=== PATIENT | male | born 1960 | race Caucasian/White ===

== ENCOUNTER → 2016-06-09 | Outpatient (REF) | payer OTHER ==
[2016-06-09 17:23] LABS: ALBUMIN 4.1 GM/DL (3.2-5.2); ALBUMIN/GLOBULIN RATIO 1.17 (1.00-1.93); ALKALINE PHOSPHATASE 120 U/L (45-117); ALT/SGPT 39 U/L (12-78); ANION GAP 6 MEQ/L (8-16); AST/SGOT 32 U/L (15-37); BILIRUBIN,TOTAL 0.6 MG/DL (0.2-1.0); BLOOD UREA NITROGEN 23 MG/DL (7-18); CALCIUM LEVEL 8.6 MG/DL (8.5-10.1); CARBON DIOXIDE LEVEL 29 MEQ/L (21-32); CHLORIDE LEVEL 106 MEQ/L (98-107); CHOLESTEROL LEVEL 133 MG/DL (<200); GLOMERULAR FILTRATION RATE > 60.0 (>56); GLUCOSE, FASTING 84 MG/DL (70-105); POTASSIUM SERUM 4.6 MEQ/L (3.5-5.1); SODIUM LEVEL 141 MEQ/L (136-145); TOTAL PROTEIN 7.6 GM/DL (6.4-8.2); TRIGLYCERIDES LEVEL 111 MG/DL (<150)
== END ==
LOC: M SFHCCLAY 11:26
PROVIDERS: ATTEND Family Medicine
DX: Z00.00 Encounter for general adult medical examination without abnormal findings (principal); Z12.5 Encounter for screening for malignant neoplasm of prostate
CPT/HCPCS: 80053; 80061; G0103

== ENCOUNTER → 2017-08-15 | Outpatient (REF) | payer BC ==
[2017-08-15 17:11] LABS: ALBUMIN 3.8 GM/DL (3.2-5.2); ALBUMIN/GLOBULIN RATIO 1.23 (1.00-1.93); ALKALINE PHOSPHATASE 103 U/L (45-117); ALT/SGPT 69 U/L (12-78); ANION GAP 11 MEQ/L (8-16); AST/SGOT 38 U/L (7-37); BILIRUBIN,TOTAL 0.4 MG/DL (0.2-1.0); BLOOD UREA NITROGEN 19 MG/DL (7-18); CALCIUM LEVEL 8.1 MG/DL (8.5-10.1); CARBON DIOXIDE LEVEL 25 MEQ/L (21-32); CHLORIDE LEVEL 107 MEQ/L (98-107); CHOLESTEROL LEVEL 105 MG/DL (<200); CREATININE FOR GFR 1.08 MG/DL (0.70-1.30); GLOMERULAR FILTRATION RATE > 60.0 (>56); GLUCOSE, FASTING 103 MG/DL (70-100); HDL CHOLESTEROL 29 MG/DL (>40); LDL CHOLESTEROL 47.4 MG/DL (<100); NON-HDL-C 76 MG/DL; POTASSIUM SERUM 4.3 MEQ/L (3.5-5.1); PSA SCREENING 0.21 NG/ML (< 4.0); SODIUM LEVEL 143 MEQ/L (136-145); TOTAL PROTEIN 6.9 GM/DL (6.4-8.2); TRIGLYCERIDES LEVEL 143 MG/DL (<150)
== END ==
LOC: M SFHCCLAY 10:18
DX: Z00.00 Encounter for general adult medical examination without abnormal findings (principal); Z12.5 Encounter for screening for malignant neoplasm of prostate
CPT/HCPCS: 80053

== ENCOUNTER → 2018-01-13 | Outpatient (CLI) | payer OTHER | LOC: M RAD 13:04 | DX: Z12.2 Encounter for screening for malignant neoplasm of respiratory organs (principal); F17.218 Nicotine dependence, cigarettes, with other nicotine-induced disorders; R91.8 Other nonspecific abnormal finding of lung field | CPT/HCPCS: G0297 ==

== ENCOUNTER → 2018-06-22 | Outpatient (REF) | payer OTHER ==
[~2018-06-22] MED LIST: VENL100T PO; VERAP80TA PO
[2018-06-23 11:48] LABS: BASO # 0.1 10^3/uL (0.0-0.2); BASO % 1.4 % (0.0-1.0); EOS # 0.2 10^3/uL (0.0-0.50); EOS % 2.4 % (0.0-3.0); HEMATOCRIT 50.4 % (42.0-52.0); HEMOGLOBIN 16.7 g/dl (13.5-17.5); LYMPH # 3.2 10^3/uL (1.5-4.5); LYMPH % 40.5 % (24.0-44.0); MEAN CORPUSCULAR HEMOGLOBIN 32.2 pg (27.0-33.0); MEAN CORPUSCULAR HGB CONC 33.1 g/dl (32.0-36.5); MEAN CORPUSCULAR VOLUME 97.3 fl (80.0-96.0); MONO # 0.6 10^3/uL (0.0-0.8); MONO % 7.9 % (0.0-5.0); NEUTROPHILS # 3.8 10^3/uL (1.8-7.7); NEUTROPHILS % 47.3 % (36.0-66.0); PLATELET COUNT, AUTOMATED 183 10^3/uL (150-450); RED BLOOD COUNT 5.18 10^6/uL (4.30-6.10); WHITE BLOOD COUNT 7.9 10^3/uL (4.0-10.0)
[2018-06-23 12:36] LABS: ALBUMIN 4.2 GM/DL (3.2-5.2); ALT/SGPT 41 U/L (12-78); BILIRUBIN,TOTAL 0.3 MG/DL (0.2-1.0); BLOOD UREA NITROGEN 21 MG/DL (7-18); CALCIUM LEVEL 8.5 MG/DL (8.5-10.1); CARBON DIOXIDE LEVEL 29 MEQ/L (21-32); CHLORIDE LEVEL 106 MEQ/L (98-107); CHOLESTEROL LEVEL 126 MG/DL (<200); CHOLESTEROL RISK RATIO 3.315 (<5); CREATININE FOR GFR 1.18 MG/DL (0.70-1.30); FREE T4 0.85 NG/DL (0.76-1.46); GLOMERULAR FILTRATION RATE > 60.0 (>56); GLUCOSE, FASTING 78 MG/DL (70-100); HDL CHOLESTEROL 38 MG/DL (>40); LDL CHOLESTEROL 68 MG/DL (<100); NON-HDL-C 88 MG/DL; SODIUM LEVEL 141 MEQ/L (136-145); TOTAL PROTEIN 7.6 GM/DL (6.4-8.2); TRIGLYCERIDES LEVEL 102 MG/DL (<150)
== END ==
LOC: M SFHCCLAY 16:20
PROVIDERS: ATTEND Nurse Practitioner Family
DX: Z00.00 Encounter for general adult medical examination without abnormal findings (principal); F34.1 Dysthymic disorder; Z72.0 Tobacco use; G44.009 Cluster headache syndrome, unspecified, not intractable; Z12.5 Encounter for screening for malignant neoplasm of prostate

== ENCOUNTER → 2019-01-23 | Outpatient (CLI) | payer OTHER ==
--- NOTE | 2019-01-23 17:12 | REP ---
Low-dose lung screening CT of the chest: The studies performed without IV contrast. The images are presented at lung windowing only. Comparisons are 03/03/2016 and 01/13/2018. There are multiple small lung nodules bilaterally. On the study today there are two new lung nodules, not present previously, one posteriorly in the left upper lobe on image 31 measuring 6 mm in diameter and the other on image 40 in the right upper lobe measuring 5 mm in diameter. In addition there are multiple other new small lung nodules in the 3 mm range bilaterally. All of the previously identified lung nodules are stable and unchanged. There are no infiltrates or pleural effusions. Impression: Multiple small lung nodules. No other lung nodules identified previously are stable and unchanged. However, there are multiple new lung nodules bilaterally in the three 4 mm range, not present previously. This is nonspecific. Granulomatous disease and metastatic disease are primary diagnostic considerations. Some infectious disease as could present in this manner as well. Electronically Signed by Taye Hedrick MD 01/23/2019 05:04 P
== END ==
LOC: M RAD 14:13
PROVIDERS: ATTEND Internal Medicine Pulmonary Disease
DX: Z12.2 Encounter for screening for malignant neoplasm of respiratory organs (principal); F17.210 Nicotine dependence, cigarettes, uncomplicated; R91.8 Other nonspecific abnormal finding of lung field

== ENCOUNTER → 2019-10-17 | Outpatient (CLI) | payer OTHER ==
[~2019-10-17] MED LIST changes: +ALL10TAB29 PO; +CYCL-707 PO; +IBUP-1022 PO
--- NOTE | 2019-10-17 17:48 | REP ---
CT CHEST WITHOUT CONTRAST: HISTORY: Abnormal lung field findings. Nicotine dependence. Comparison is made with prior chest CTs, the most recent of which is from January 23, 2019 and the most remote from September 20, 2014. FINDINGS: Most of the subcentimeter pulmonary nodules which were identified as new pulmonary nodules on the January 23, [address] study have resolved . In the posterior segment of the left upper lobe, there was a 6 mm nodule on the most recent prior study which was also new. This it is tiny now, approximately 2 mm. This has regressed significantly. There are multiple stable pulmonary nodules, which are unchanged from the September 20, 2014 prior study bilaterally. No new pulmonary nodule is appreciated today. Emphysematous changes are again noted. There is no evidence of hilar or mediastinal mass or adenopathy. There is moderate to marked fatty infiltration of the liver diffusely. Normal adrenal glands are seen. IMPRESSION: Interval resolution and regression many of the pulmonary nodules which are identified as new on the most recent prior study. There are several stable pulmonary nodules as well. Electronically Signed by Judson Hou MD 10/17/2019 06:03 P
== END ==
LOC: M RAD 16:23
PROVIDERS: ATTEND Internal Medicine Pulmonary Disease
DX: R91.8 Other nonspecific abnormal finding of lung field (principal); F17.218 Nicotine dependence, cigarettes, with other nicotine-induced disorders; J43.9 Emphysema, unspecified

== ENCOUNTER → 2019-10-25 | Outpatient (REF) | payer OTHER ==
[~2019-10-25] MED LIST changes: -ALL10TAB29 PO; +CETI-24 PO
[2019-10-25 12:13] LABS: BASO # 0.1 10^3/uL (0.0-0.2); BASO % 1.4 % (0.0-1.0); EOS # 0.2 10^3/uL (0.0-0.5); EOS % 2.9 % (0.0-3.0); HEMATOCRIT 50.2 % (42.0-52.0); HEMOGLOBIN 16.9 g/dl (13.5-17.5); LYMPH # 2.5 10^3/uL (1.5-5.0); LYMPH % 33.8 % (24.0-44.0); MEAN CORPUSCULAR HEMOGLOBIN 32.9 pg (27.0-33.0); MEAN CORPUSCULAR HGB CONC 33.7 g/dl (32.0-36.5); MEAN CORPUSCULAR VOLUME 97.7 fl (80.0-96.0); MONO # 0.6 10^3/uL (0.0-0.8); MONO % 8.6 % (0.0-5.0); NEUTROPHILS # 3.9 10^3/uL (1.5-8.5); NEUTROPHILS % 52.8 % (36.0-66.0); PLATELET COUNT, AUTOMATED 166 10^3/uL (150-450); RED BLOOD COUNT 5.14 10^6/uL (4.30-6.10); WHITE BLOOD COUNT 7.3 10^3/uL (4.0-10.0)
[2019-10-25 13:10] LABS: ALBUMIN 4.1 GM/DL (3.2-5.2); ALT/SGPT 55 U/L (12-78); BILIRUBIN,TOTAL 0.6 MG/DL (0.2-1.0); BLOOD UREA NITROGEN 23 MG/DL (7-18); CARBON DIOXIDE LEVEL 26 MEQ/L (21-32); CHLORIDE LEVEL 111 MEQ/L (98-107); CHOLESTEROL LEVEL 127 MG/DL (<200); CHOLESTEROL RISK RATIO 4.379 (<5); CREATININE FOR GFR 1.15 MG/DL (0.70-1.30); FREE T4 0.91 NG/DL (0.76-1.46); GLOMERULAR FILTRATION RATE > 60.0 (>56); GLUCOSE, FASTING 105 MG/DL (70-100); HDL CHOLESTEROL 29 MG/DL (>40); LDL CHOLESTEROL 83 MG/DL (<100); NON-HDL-C 98 MG/DL; POTASSIUM SERUM 4.3 MEQ/L (3.5-5.1); SODIUM LEVEL 142 MEQ/L (136-145); TOTAL PROTEIN 7.3 GM/DL (6.4-8.2); TRIGLYCERIDES LEVEL 74 MG/DL (<150)
[2019-10-25 17:07] LABS: HEMOGLOBIN A1c 5.9 %
== END ==
LOC: M SFHCCLAY 07:52
PROVIDERS: ATTEND Nurse Practitioner Family
DX: Z00.00 Encounter for general adult medical examination without abnormal findings (principal); F34.1 Dysthymic disorder; R03.0 Elevated blood-pressure reading, without diagnosis of hypertension; Z13.220 Encounter for screening for lipoid disorders; Z13.1 Encounter for screening for diabetes mellitus

== ENCOUNTER 2020-10-12 13:53 | Emergency (ER) | payer OTHER ==
[~2020-10-12] VITALS: Ht 177.8 cm; Wt 94.2 kg
[~2020-10-12 13:53] MED LIST changes: +VERA80TA3 PO; -VERAP80TA PO
[2020-10-12] MEDS ORDERED: LIDOCAINE 2% MDV 20ML VIAL SC ONE (16:05)
[2020-10-12 16:27] VITALS: BP 134/87
== END 2020-10-12 16:35 | disposition home or self-care (01) ==
LOC: M ED 13:53
DX: S61.412A Laceration without foreign body of left hand, initial encounter (principal); W26.0XXA Contact with knife, initial encounter; Y92.009 Unspecified place in unspecified non-institutional (private) residence as the place of occurrence of the external cause; Y93.9 Activity, unspecified; Y99.9 Unspecified external cause status; J44.9 Chronic obstructive pulmonary disease, unspecified; R51.9 Headache, unspecified; Z79.899 Other long term (current) drug therapy

== ENCOUNTER → 2020-11-20 | Outpatient (CLI) | payer OTHER ==
--- NOTE | 2020-11-20 18:22 | REP ---
INDICATION: NICTOINE DEPEND. COMPARISON: Multiple the latest 10/17/2019 a standard noncontrast enhanced chest CT TECHNIQUE: Axial noncontrast images from the thoracic inlet to the upper abdomen using low-dose lung screening technique (LDCT). As per the protocol only lung window images were sent to the read station for interpretation. FINDINGS: There are emphysematous changes status quo. There is minimal biapical pleuroparenchymal scarring status quo. There are no new pulmonary nodules. There are no new abnormal opacities. Incidental note is again made of calcified granulomas 1 in the left upper and the other in the left lower lobe. Grossly, the mediastinum and pulmonary brunilda are unchanged. Grossly, the imaged upper abdomen and imaged osseous structures are unchanged. IMPRESSION: Stable lung rads category [address] low-dose screening CT examination of the lungs. Yearly lung screening CT is recommended as per the revised Fleischner society criteria. <Electronically signed by Timothy Loyola > 11/20/20 [id number]
== END ==
LOC: M RAD 17:01
PROVIDERS: ATTEND Physician Assistant
DX: Z12.2 Encounter for screening for malignant neoplasm of respiratory organs (principal); F17.218 Nicotine dependence, cigarettes, with other nicotine-induced disorders

== ENCOUNTER → 2021-11-03 | Outpatient (REF) | payer OTHER ==
[2021-11-03 11:46] LABS: BASO # 0.1 10^3/uL (0.0-0.2); BASO % 1.2 % (0.0-1.0); EOS # 0.2 10^3/uL (0.0-0.5); HEMOGLOBIN 17.1 g/dl (13.5-17.5); LYMPH # 2.6 10^3/uL (1.5-5.0); LYMPH % 39.2 % (24.0-44.0); MEAN CORPUSCULAR HEMOGLOBIN 32.6 pg (27.0-33.0); MEAN CORPUSCULAR HGB CONC 34.2 g/dl (32.0-36.5); MEAN CORPUSCULAR VOLUME 95.2 fl (80.0-96.0); MONO # 0.6 10^3/uL (0.0-0.8); MONO % 8.3 % (2.0-8.0); NEUTROPHILS # 3.2 10^3/uL (1.5-8.5); NEUTROPHILS % 47.8 % (36.0-66.0); PLATELET COUNT, AUTOMATED 144 10^3/uL (150-450); RED BLOOD COUNT 5.25 10^6/uL (4.30-6.10); WHITE BLOOD COUNT 6.6 10^3/uL (4.0-10.0)
[2021-11-03 12:10] LABS: ALBUMIN 3.9 GM/DL (3.2-5.2); ALT/SGPT 57 U/L (12-78); BILIRUBIN,TOTAL 0.5 MG/DL (0.2-1.0); BLOOD UREA NITROGEN 24 MG/DL (7-18); CALCIUM LEVEL 8.8 MG/DL (8.5-10.1); CARBON DIOXIDE LEVEL 27 MEQ/L (21-32); CHLORIDE LEVEL 109 MEQ/L (98-107); CHOLESTEROL LEVEL 135 MG/DL (<200); CHOLESTEROL RISK RATIO 4.354 (<5); FREE T4 0.75 NG/DL (0.76-1.46); GLOMERULAR FILTRATION RATE > 60.0 (>56); GLUCOSE, FASTING 111 MG/DL (70-100); HDL CHOLESTEROL 31 MG/DL (>40); HEMOGLOBIN A1c 5.7 %; LDL CHOLESTEROL 86 MG/DL (<100); NON-HDL-C 104 MG/DL; POTASSIUM SERUM 4.6 MEQ/L (3.5-5.1); SODIUM LEVEL 141 MEQ/L (136-145); TRIGLYCERIDES LEVEL 88 MG/DL (<150)
== END ==
LOC: M SFHCCLAY 08:03
PROVIDERS: ATTEND Nurse Practitioner Family
DX: G44.009 Cluster headache syndrome, unspecified, not intractable (principal); Z72.0 Tobacco use; F34.1 Dysthymic disorder; B00.1 Herpesviral vesicular dermatitis; R73.03 Prediabetes

== ENCOUNTER → 2021-11-27 | Outpatient (CLI) | payer OTHER | LOC: M RAD 11:00 | PROVIDERS: ATTEND Physician Assistant | DX: Z12.2 Encounter for screening for malignant neoplasm of respiratory organs (principal); F17.218 Nicotine dependence, cigarettes, with other nicotine-induced disorders ==

== ENCOUNTER → 2022-02-15 | Outpatient (CLI) | payer OTHER | LOC: M RAD 08:06 | PROVIDERS: ATTEND Nurse Practitioner Family | DX: G44.009 Cluster headache syndrome, unspecified, not intractable (principal) ==

== ENCOUNTER → 2022-02-23 | Outpatient (CLI) | payer OTHER | LOC: M LABSMTC 09:30 | PROVIDERS: ATTEND Anesthesiology | DX: Z01.818 Encounter for other preprocedural examination (principal); Z11.52 Encounter for screening for COVID-19 ==

== ENCOUNTER 2022-02-25 08:06 | Day surgery (SDC) | payer OTHER ==
[~2022-02-25] VITALS: Ht 177.8 cm; Wt 92.4 kg
[~2022-02-25 08:06] MED LIST changes: +NS 1,000 ML IV ONE
[2022-02-25] MEDS ORDERED: propofoL 200 MG/20 ML VIAL As Ordered ONE ×2 (09:38→09:52)
[2022-02-25] MEDS ORDERED: LIDOCAINE 2% 100MG/5ML SDV (FOR ANES.) As Ordered ONE (09:38)
[2022-02-25 10:13] VITALS: BP 141/79
== END 2022-02-25 10:33 | disposition home or self-care (01) ==
LOC: M OPP 08:06
PROVIDERS: ATTEND Surgery
DX: Z12.11 Encounter for screening for malignant neoplasm of colon (principal); K63.5 Polyp of colon; Z79.899 Other long term (current) drug therapy; F32.9 Major depressive disorder, single episode, unspecified; F44.9 Dissociative and conversion disorder, unspecified; F17.200 Nicotine dependence, unspecified, uncomplicated

== ENCOUNTER 2022-12-11 16:56 | Emergency (ER) | payer OTHER ==
[~2022-12-11] VITALS: Ht 177.8 cm; Wt 96.0 kg
[~2022-12-11 16:56] MED LIST changes: -NS 1,000 ML IV ONE
[2022-12-11] MEDS ORDERED: KETOROLAC 60MG 2ML VIAL IM ONE (19:10)
[2022-12-11] MEDS ORDERED: METH-1164 PO (20:32)
[2022-12-11] MEDS ORDERED: IBUP-1022 PO (20:41)
[2022-12-11] MEDS ORDERED: methocarbamoL 500 MG TAB PO ONE (20:45)
[2022-12-11 20:46] VITALS: BP 168/99; TEMP 97.9; O2SAT 98
== END 2022-12-11 20:49 | disposition home or self-care (01) ==
LOC: M ED 16:56
DX: M25.511 Pain in right shoulder (principal); M25.521 Pain in right elbow; F32.A Depression, unspecified; Z79.899 Other long term (current) drug therapy
CPT/HCPCS: 73030; 73080; 96372; 99283; J1885

== ENCOUNTER → 2022-12-14 | Outpatient (REF) | payer OTHER ==
[~2022-12-14] MED LIST changes: +METH-1164 PO
[2022-12-14 12:48] LABS: BASO # 0.1 10^3/uL (0.0-0.2); BASO % 1.2 % (0.0-1.0); EOS # 0.2 10^3/uL (0.0-0.5); EOS % 2.9 % (0.0-3.0); LYMPH # 2.4 10^3/uL (1.5-5.0); LYMPH % 35.6 % (24.0-44.0); MEAN CORPUSCULAR HEMOGLOBIN 33.6 pg (27.0-33.0); MEAN CORPUSCULAR HGB CONC 34.7 g/dl (32.0-36.5); MEAN CORPUSCULAR VOLUME 96.8 fl (80.0-96.0); MONO # 0.6 10^3/uL (0.0-0.8); MONO % 8.3 % (2.0-8.0); NEUTROPHILS # 3.4 10^3/uL (1.5-8.5); NEUTROPHILS % 51.5 % (36.0-66.0); PLATELET COUNT, AUTOMATED 142 10^3/uL (150-450); RED BLOOD COUNT 5.06 10^6/uL (4.30-6.10); WHITE BLOOD COUNT 6.6 10^3/uL (4.0-10.0)
[2022-12-14 13:06] LABS: ALKALINE PHOSPHATASE 85 U/L (46-116); ALT/SGPT 60 U/L (7.0-40); AST/SGOT 36 U/L (<34); BILIRUBIN,TOTAL 0.6 MG/DL (0.3-1.2); BLOOD UREA NITROGEN 23 MG/DL (9-23); CALCIUM LEVEL 8.9 MG/DL (8.5-10.1); CARBON DIOXIDE LEVEL 24 MMOL/L (20-31); CHLORIDE LEVEL 109 MMOL/L (98-107); CHOLESTEROL LEVEL 122 MG/DL (<200); CHOLESTEROL RISK RATIO 3.73 (<5); CREATININE FOR GFR 1.08 MG/DL (0.70-1.30); GLOMERULAR FILTRATION RATE > 60.0 (>56); GLUCOSE, FASTING 113 MG/DL (60-100); HDL CHOLESTEROL 32.7 MG/DL (>40); LDL CHOLESTEROL 73.3 MG/DL (<100); NON-HDL-C 89.3 MG/DL; POTASSIUM SERUM 4.5 MMOL/L (3.5-5.1); SODIUM LEVEL 142 MMOL/L (136-145); TOTAL PROTEIN 6.8 G/DL (5.7-8.2); TRIGLYCERIDES LEVEL 80 MG/DL (<150)
[2022-12-14 13:07] LABS: FREE T4 0.95 NG/DL (0.89-1.76); THYROID STIMULATING HORMONE 4.931 uIU/ML (0.55-4.78)
[2022-12-14 13:08] LABS: HEMOGLOBIN A1c 5.5 % (4.0-6.0)
[2022-12-14 13:16] LABS: CREATININE, URINE 81.6 MG/DL
[2022-12-14 13:17] LABS: MAU/CREAT RATIO 6.1 MCG/MG (0.0-30.0)
== END ==
LOC: M SFHCCLAY 08:24
PROVIDERS: ATTEND Nurse Practitioner Family
DX: G44.009 Cluster headache syndrome, unspecified, not intractable (principal); F34.1 Dysthymic disorder; B00.1 Herpesviral vesicular dermatitis; R73.03 Prediabetes; F17.290 Nicotine dependence, other tobacco product, uncomplicated

== ENCOUNTER → 2022-12-22 | Outpatient (CLI) | payer OTHER | LOC: M RAD 17:00 | PROVIDERS: ATTEND Physician Assistant | DX: Z87.891 Personal history of nicotine dependence (principal) ==

== ENCOUNTER → 2023-03-24 | Outpatient (CLI) | payer OTHER | LOC: M PLARAD 10:23 | PROVIDERS: ATTEND Orthopaedic Surgery Hand Surgery | DX: M54.2 Cervicalgia (principal) ==

== ENCOUNTER → 2023-04-20 | Outpatient (CLI) | payer OTHER | LOC: M SOG 08:02 | PROVIDERS: ATTEND Orthopaedic Surgery | DX: M47.896 Other spondylosis, lumbar region (principal) ==

== ENCOUNTER 2023-04-24 10:47 | Emergency (ER) | payer OTHER ==
[2023-04-24] MEDS ORDERED: IPRATROPIUM 0.5MG/ALBUTEROL 2.5MG INH SOL UD 3ML (DUONEB) NEB ONE ×2 (12:15→13:15)
[2023-04-24] MEDS ORDERED: methylPREDNISolone 125MG 2ML VIAL IV ONE (13:10)
[2023-04-24 13:45] LABS: VENOUS BASE EXCESS -2.6 (-2.0-2.0); VENOUS O2 SATURATION 85.8 % (60.0-80.0); VENOUS TOTAL CO2 23.1 MMOL/L (24.0-28.0)
[2023-04-24 13:52] LABS: HEMATOCRIT 49.8 % (42.0-52.0); HEMOGLOBIN 17.1 g/dl (13.5-17.5); MEAN CORPUSCULAR HEMOGLOBIN 33.2 pg (27.0-33.0); MEAN CORPUSCULAR HGB CONC 34.3 g/dl (32.0-36.5); MEAN CORPUSCULAR VOLUME 96.7 fl (80.0-96.0); PLATELET COUNT, AUTOMATED 134 10^3/uL (150-450); RED BLOOD COUNT 5.15 10^6/uL (4.30-6.10); WHITE BLOOD COUNT 6.1 10^3/uL (4.0-10.0)
[2023-04-24 15:03] LABS: BILIRUBIN,DIRECT 0.4 MG/DL (<0.4); BILIRUBIN,TOTAL 0.7 MG/DL (0.3-1.2); CK-MB VALUE MASS 1.2 NG/ML (<3.6)
[2023-04-24 15:12] LABS: MB/CK RELATIVE INDEX 0.48 (< OR =4)
[2023-04-24] MEDS ORDERED: OSEL75CA2 PO (15:22)
[2023-04-24] MEDS ORDERED: MUCI120T PO (15:22)
[2023-04-24 15:31] VITALS: BP 157/93; TEMP 98.9; O2SAT 96
== END 2023-04-24 15:40 | disposition home or self-care (01) ==
LOC: M ED 10:47
DX: J09.X2 Influenza due to identified novel influenza A virus with other respiratory manifestations (principal); J44.9 Chronic obstructive pulmonary disease, unspecified; J43.9 Emphysema, unspecified; F17.200 Nicotine dependence, unspecified, uncomplicated; Z79.1 Long term (current) use of non-steroidal anti-inflammatories (NSAID); Z79.899 Other long term (current) drug therapy
CPT/HCPCS: 71046; 80047; 80076; 82550; 82553; 82803; 83880; 85027; 87486; 87581; 87633; 87798; 93005; 94640; 96374; 99284; J2930

== ENCOUNTER → 2023-08-22 | Outpatient (REF) | payer OTHER ==
[~2023-08-22] MED LIST changes: +MUCI120T PO; +OSEL75CA2 PO
[2023-08-22 18:28] LABS: BASO # 0.1 10^3/uL (0.0-0.2); EOS # 0.1 10^3/uL (0.0-0.5); EOS % 1.7 % (0.0-3.0); HEMATOCRIT 52.7 % (42.0-52.0); HEMOGLOBIN 18.8 g/dl (13.5-17.5); LYMPH # 2.6 10^3/uL (1.5-5.0); LYMPH % 33.1 % (24.0-44.0); MEAN CORPUSCULAR HEMOGLOBIN 34.1 pg (27.0-33.0); MEAN CORPUSCULAR HGB CONC 35.7 g/dl (32.0-36.5); MEAN CORPUSCULAR VOLUME 95.5 fl (80.0-96.0); MONO # 0.4 10^3/uL (0.0-0.8); MONO % 5.6 % (2.0-8.0); NEUTROPHILS # 4.5 10^3/uL (1.5-8.5); NEUTROPHILS % 58.2 % (36.0-66.0); PLATELET COUNT, AUTOMATED 187 10^3/uL (150-450); RED BLOOD COUNT 5.52 10^6/uL (4.30-6.10); WHITE BLOOD COUNT 7.7 10^3/uL (4.0-10.0)
[2023-08-22 18:33] LABS: HEMOGLOBIN A1c 5.2 % (4.0-6.0)
[2023-08-22 18:47] LABS: PSA SCREENING 0.13 NG/ML (< 4.00)
[2023-08-22 18:51] LABS: THYROID STIMULATING HORMONE 4.346 uIU/ML (0.55-4.78)
[2023-08-22 18:52] LABS: ALBUMIN 4.1 G/DL (3.2-5.2); ALKALINE PHOSPHATASE 103 U/L (46-116); ALT/SGPT 45 U/L (7.0-40); AST/SGOT 39 U/L (<34); BILIRUBIN,TOTAL 0.8 MG/DL (0.3-1.2); BLOOD UREA NITROGEN 27 MG/DL (9-23); CALCIUM LEVEL 9.1 MG/DL (8.3-10.6); CARBON DIOXIDE LEVEL 22 MMOL/L (20-31); CHLORIDE LEVEL 109 MMOL/L (98-107); CHOLESTEROL LEVEL 122 MG/DL (<200); CHOLESTEROL RISK RATIO 3.59 (<5); CREATININE FOR GFR 1.04 MG/DL (0.70-1.30); GLOMERULAR FILTRATION RATE > 60.0 (>49); GLUCOSE, FASTING 86 MG/DL (74-106); HDL CHOLESTEROL 33.9 MG/DL (>40); LDL CHOLESTEROL 70.1 MG/DL (<100); NON-HDL-C 88.1 MG/DL; SODIUM LEVEL 138 MMOL/L (136-145); TOTAL PROTEIN 7.4 G/DL (5.7-8.2); TRIGLYCERIDES LEVEL 90 MG/DL (<150)
[2023-08-22 18:53] LABS: FREE T4 0.99 NG/DL (0.89-1.76)
== END ==
LOC: M SFHCCLAY 13:18
PROVIDERS: ATTEND Nurse Practitioner Family
DX: G44.009 Cluster headache syndrome, unspecified, not intractable (principal); F34.1 Dysthymic disorder; B00.1 Herpesviral vesicular dermatitis; R73.03 Prediabetes; Z72.0 Tobacco use; N52.9 Male erectile dysfunction, unspecified; R35.1 Nocturia

== ENCOUNTER → 2023-10-18 | Outpatient (CLI) | payer OTHER ==
[2023-10-18 11:20] LABS: FOLLICLE STIMULATING HORMONE 12.6 mIU/ML (1.4-18.1); LUTEINIZING HORMONE 3.9 mIU/ML (1.5-9.3)
[2023-10-18 11:23] LABS: ESTRADIOL 20.9 PG/ML (<39.8)
== END ==
LOC: M LAB 10:10
PROVIDERS: ATTEND Physician Assistant
DX: E29.1 Testicular hypofunction (principal)

== ENCOUNTER → 2024-01-29 | Outpatient (CLI) | payer OTHER ==
[2024-01-29 16:09] LABS: HEMATOCRIT 51.4 % (42.0-52.0); HEMOGLOBIN 18.2 g/dl (13.5-17.5); MEAN CORPUSCULAR HEMOGLOBIN 33.2 pg (27.0-33.0); MEAN CORPUSCULAR HGB CONC 35.4 g/dl (32.0-36.5); MEAN CORPUSCULAR VOLUME 93.6 fl (80.0-96.0); PLATELET COUNT, AUTOMATED 172 10^3/uL (150-450); RED BLOOD COUNT 5.49 10^6/uL (4.30-6.10); WHITE BLOOD COUNT 9.6 10^3/uL (4.0-10.0)
== END ==
LOC: M LAB 15:40
PROVIDERS: ATTEND Physician Assistant
DX: E29.1 Testicular hypofunction (principal)

== ENCOUNTER → 2024-02-09 | Outpatient (CLI) | payer OTHER | LOC: M RAD 07:06 | PROVIDERS: ATTEND Physician Assistant | DX: Z12.2 Encounter for screening for malignant neoplasm of respiratory organs (principal); F17.218 Nicotine dependence, cigarettes, with other nicotine-induced disorders ==

== ENCOUNTER → 2024-04-30 | Outpatient (CLI) | payer OTHER | LOC: M LAB 08:21 | PROVIDERS: ATTEND Physician Assistant | DX: E29.1 Testicular hypofunction (principal) ==

== ENCOUNTER → 2024-10-26 | Outpatient (CLI) | payer OTHER ==
[2024-10-26 08:38] LABS: BASO # 0.1 10^3/uL (0.0-0.2); BASO % 1.4 % (0.0-1.0); EOS # 0.2 10^3/uL (0.0-0.5); EOS % 2.7 % (0.0-3.0); LYMPH # 2.3 10^3/uL (1.5-5.0); LYMPH % 28.1 % (24.0-44.0); MONO # 0.6 10^3/uL (0.0-0.8); MONO % 6.9 % (2.0-8.0); NEUTROPHILS # 4.9 10^3/uL (1.5-8.5); NEUTROPHILS % 60.3 % (36.0-66.0); PLATELET COUNT, AUTOMATED 159 10^3/uL (150-450)
[2024-10-26 09:02] LABS: CREATININE, URINE 87.8 MG/DL; MALB URINE SIEMENS < 3.0 MG/L
[2024-10-26 09:12] LABS: ALT/SGPT 34.0 U/L (7.0-40); AST/SGOT 32.0 U/L (<34); CALCIUM LEVEL 9.1 MG/DL (8.3-10.6); CARBON DIOXIDE LEVEL 25.0 MMOL/L (20-31); CHLORIDE LEVEL 105.0 MMOL/L (98-107); CHOLESTEROL LEVEL 118.0 MG/DL (<200); CHOLESTEROL RISK RATIO 3.78 (<5); CREATININE FOR GFR 1.02 MG/DL (0.70-1.30); FREE T4 1.12 NG/DL (0.89-1.76); GLOMERULAR FILTRATION RATE 83.6 (>49); LDL CHOLESTEROL 71.4 MG/DL (<100); NON-HDL-C 86.8 MG/DL; POTASSIUM SERUM 4.2 MMOL/L (3.5-5.1); SODIUM LEVEL 141.0 MMOL/L (136-145); TRIGLYCERIDES LEVEL 77.0 MG/DL (<150)
[2024-10-26 09:31] LABS: ESTIMATED AVERAGE GLUCOSE 117.0 MG/DL (60-110)
== END ==
LOC: M LAB 07:41
PROVIDERS: ATTEND Nurse Practitioner Family
DX: G44.009 Cluster headache syndrome, unspecified, not intractable (principal)

== ENCOUNTER → 2024-10-26 | Outpatient (CLI) | payer OTHER ==
[2024-10-26 09:01] LABS: PSA SCREENING 0.21 NG/ML (< 4.00)
[2024-10-26 09:06] LABS: TESTOSTERONE 192.0 NG/DL (241-827)
== END ==
LOC: M LAB 07:43
PROVIDERS: ATTEND Physician Assistant
DX: E29.1 Testicular hypofunction (principal)

== ENCOUNTER → 2025-01-15 | Outpatient (CLI) | payer OTHER ==
[~2025-01-15] MED LIST changes: -IBUP-1022 PO; +IBUP600T42 PO
[2025-01-15 15:24] LABS: PLATELET COUNT, AUTOMATED 176 10^3/uL (150-450)
== END ==
LOC: M LAB 10:28
PROVIDERS: ATTEND Physician Assistant
DX: D75.1 Secondary polycythemia (principal); E29.1 Testicular hypofunction

== ENCOUNTER → 2025-03-04 | Outpatient (CLI) | payer OTHER | LOC: M RAD 07:36 | PROVIDERS: ATTEND Physician Assistant | DX: Z87.891 Personal history of nicotine dependence (principal) ==